=== PATIENT | male | born 1945 | race Caucasian/White ===

== ENCOUNTER 2016-09-12 09:50 | Outpatient (CLI) | payer OTHER ==
--- NOTE | 2016-09-12 10:48 | CT ---
EXAM: CT of the abdomen pelvis with contrast History: Nausea, mid to lower abdominal pain. Comparison: CT abdomen pelvis 08/05/2013 Technique: Multiplanar CT images through the abdomen pelvis were obtained following administration o f IV contrast Findings: Lung bases are free of consolidation. No acute osseous abnormalities. Cholecystectomy clips. Stable small benign hypoattenuating liver lesion. 1.6 cm enhancing lesion w ithin the spleen is new compared to the prior study. Adrenal glands are unremarkable. Bilateral re nal cysts are again noted. Stable prominent bulge within the pancreatic body but no abnormal enhanc ement of the pancreas. No bowel obstruction. Colonic diverticulosis. No free air. Prostate is en larged. Bladder is not well distended. No pathologically enlarged lymph nodes. Postsurgical change s of lower abdominal hernia repair again noted. Impression: 1. No acute intra-abdominal or pelvic process. 2. Colonic diverticulosis. 3. New enhancing lesion within the spleen is indeterminate. Further evaluation can be obtained wit h either ultrasound or MRI protocol. 4. Enlarged prostate
== END 2016-09-12 09:51 | disposition home or self-care (01) ==
LOC: RAD 09:50
PROVIDERS: ATTEND Family Medicine
DX: R11.0 Nausea (principal); K76.0 Fatty (change of) liver, not elsewhere classified; E78.5 Hyperlipidemia, unspecified

== ENCOUNTER 2016-09-29 08:24 | Outpatient (CLI) ==
--- NOTE | 2016-09-29 09:44 | US ---
EXAM: Complete abdominal ultrasound. History: Patent and to assist Comparison: CT abdomen pelvis 09/12/2016 Technique: Multiple sonographic images through the abdomen were obtained. Color duplex Doppler was used to interrogate vascular flow. Findings: The liver was not well visualized due to bowel gas shadowing. There is antegrade flow within the ma in portal vein. No focal liver lesions identified sonographically. Visualized abdominal aorta and IVC are patent. The visualized pancreas demonstrates no gross abnormality. No abdominal ascites. Status post cholecystectomy. Common bile duct measures 0.5 cm in caliber. Both kidneys measure normal in long length without evidence for hydronephrosis. 2.5 cm right renal cyst. No shadowing calculi. Bladder is not well distended. Spleen is upper limits of normal in size measuring 12 cm in long length. 1.4 cm mixed echogenic spl enic lesion. Impression: 1. Indeterminate splenic lesion could be benign or malignant. Recommend correlation with MRI. 2. The liver is not well seen due to shadowing bowel gas. This also can be evaluated with a liver MRI protocol. 3. Simple appearing right renal cyst.
== END 2016-09-29 08:25 | disposition home or self-care (01) ==
LOC: RAD 08:24
PROVIDERS: ATTEND Family Medicine
DX: K76.0 Fatty (change of) liver, not elsewhere classified (principal)

== ENCOUNTER 2017-10-26 08:57 | Outpatient (CLI) ==
--- NOTE | 2017-10-26 10:41 | CT ---
EXAM: CT of the abdomen pelvis with contrast History: Epigastric abdominal pain. Comparison: Abdominal ultrasound 09/29/2016 Technique: Multiplanar CT images through the abdomen pelvis were obtained following administration o f IV contrast. Findings: Lung bases are clear. No acute osseous abnormalities. Status post cholecystectomy. Stable tiny benign hepatic cysts. No change in the 1.5 cm enhancing le cindy within the spleen that is compatible with a benign hemangioma. Pancreas is unremarkable. Adren al glands are within normal limits. No change in the small simple bilateral renal cysts. No enhanci ng renal masses. No dilated loops of bowel. Colonic diverticulosis. No bladder wall thickening. E nlarged prostate abutting the base of the bladder. No perirectal inflammation. No free air and no a scites. The liver is probably mild fatty. Impression: 1. No acute intra-abdominal or pelvic process. 2. Stable benign splenic hemangioma. No additional follow-up is needed. 3. Colonic diverticulosis. 4. Enlarged prostate. 5. Stable simple hepatic and renal cysts. 6. Probable mild fatty liver.
== END 2017-10-26 08:58 | disposition home or self-care (01) ==
LOC: RAD 08:57
PROVIDERS: ATTEND Family Medicine
DX: R10.13 Epigastric pain (principal)